=== PATIENT | female | born 1955 | race Caucasian/White ===

== ENCOUNTER → 2018-03-30 | Outpatient (CLI) | payer BC ==
[~2018-03-30] MED LIST: ACE325 PO; ASC500 PO; CALC-901 PO; ESCI5SOL2 PO; MOMR; MULT-1 PO; OMEG-11 PO; SIM10 PO; [UNRECOGNIZED DRUG - CODE] PO
--- NOTE | 2018-03-31 11:51 | RADIOLOGY IMAGING REPORT ---
FACILITY: [facility] [place] PATIENT NAME: MEGHAN SALDIVAR : [id number] MR: [id number] V: [id number] EXAM DATE: [id number] ORDERING PHYSICIAN: WAYLON CASTAÑEDA TECHNOLOGIST: Dinora Magana PROCEDURE:BILATERAL DIGITAL SCREENING MAMMOGRAM WITH CAD ASSISTED INTERPRETATION & 3D TOMOSYNTHESIS COMPARISON:Prior mammograms 03/15/17, 03/08/16. INDICATIONS:SCREENING FINDINGS: There is scattered fibroglandular tissue. Within the Left posterior breast at the nipple line on both views there is a 6mm vague focal asymmetry. This structure appears to represent a potential nodule based on the Tomographic images. This finding is likely unchanged compared to 2017 and 2016 exams comparing MLO views but is more visible on the CC view on current exam. This finding does appear new compared to 2015 comparisons. This finding is favored to represent a likely benign cyst or lymph node however is non-specific and further imaging is recommended for further characterization. Otherwise unremarkable breasts without additional change. No suspicious microcalcification. DIAGNOSTIC CATEGORY 0--INCOMPLETE: NEED ADDITIONAL IMAGING EVALUATION. RECOMMENDATIONS: ADDITIONAL MAMMOGRAPHIC VIEWS REQUIRED: LEFT BREAST. IMPRESSION: BIRADS 0: Incomplete. Needs additional imaging, Left breast Spot compression CC and MLO views and Left breast Ultrasound recommended for further evaluation of the focal asymmetry described above. Dictated by: Otoniel Garg on 03/31/2018 at 10:31 Transcribed by: FREYA on 03/31/2018 at 10:47 Approved by: Otoniel Garg on 03/31/2018 at 11:51 [facility]
== END ==
LOC: MAMO 01:49
PROVIDERS: ATTEND Nurse Practitioner Psychiatric/Mental Health
DX: Z12.31 Encounter for screening mammogram for malignant neoplasm of breast (principal); R92.8 Other abnormal and inconclusive findings on diagnostic imaging of breast
CPT/HCPCS: 77063; 77067

== ENCOUNTER → 2018-04-26 | Outpatient (CLI) | payer BC ==
--- NOTE | 2018-04-27 13:51 | RADIOLOGY IMAGING REPORT ---
FACILITY: [facility] PATIENT NAME: MEGHAN SALDIVAR : [id number] MR: [id number] V: [id number] EXAM DATE: [id number] ORDERING PHYSICIAN: WAYLON CASTAÑEDA TECHNOLOGIST: Dinora Magana PROCEDURE:LEFT DIGITAL DIAGNOSTIC MAMMOGRAM WITH CAD ASSISTED INTERPRETATION & 3D TOMOSYNTHESIS COMPARISON:Prior mammograms 03/30/18, 03/15/17, 03/08/16, 03/05/15, 02/18/14, 02/13/13, 02/10/12. INDICATIONS:further evaluation FINDINGS: The patient returns for Spot compression views in Left CC and MLO projections with 3D Tomosynthesis. A small amount of fibroglandular tissue is again seen throughout the breasts. Re-demonstrated is the ovoid nodular density in the deep central portion of the Left breast. Today's Left breast Ultrasound did not demonstrate and sonographic correlate therefore a 6 month follow-up Left mammogram is recommended to show stability unless clinical findings warrant more immediate attention. DIAGNOSTIC CATEGORY 3--PROBABLY BENIGN FINDING. RECOMMENDATIONS: SIX MONTH FOLLOW-UP DIAGNOSTIC MAMMOGRAM: LEFT BREAST. IMPRESSION: BIRADS 3: Probably benign finding. A 6 month follow-up Left mammogram is recommended as described. Dictated by: Erika Graves M.D. on 04/26/2018 at 15:46 Transcribed by: FREYA on 04/26/2018 at 16:06 Approved by: Erika Graves M.D. on 04/27/2018 at 13:50 [facility]
--- NOTE | 2018-04-27 13:51 | RADIOLOGY IMAGING REPORT ---
FACILITY: [facility] PATIENT NAME: MEGHAN SALDIVAR : [id number] MR: [id number] V: [id number] EXAM DATE: [id number] ORDERING PHYSICIAN: WAYLON CASTAÑEDA TECHNOLOGIST: dR Strong RDMS, KIANNA PROCEDURE:US LEFT BREAST COMPARISON:None. INDICATIONS:further evaluation FINDINGS: The entire Left breast was imaged revealing no sonographic abnormality to account for the ovoid nodular density in the deep central Left breast therefore a 6 month follow-up Left mammogram is recommended to document stability. DIAGNOSTIC CATEGORY 3--PROBABLY BENIGN FINDING. RECOMMENDATIONS: SIX MONTH FOLLOW-UP DIAGNOSTIC MAMMOGRAM: LEFT BREAST. IMPRESSION: BIRADS 3: Probably benign finding. A 6 month Left mammogram is recommended as described above. Dictated by: Erika Graves M.D. on 04/26/2018 at 15:33 Transcribed by: FREYA on 04/26/2018 at 16:09 Approved by: Erika Graves M.D. on 04/27/2018 at 13:50 [facility]
== END ==
LOC: MAMO 02:04
PROVIDERS: ATTEND Nurse Practitioner Psychiatric/Mental Health
DX: R92.2 Inconclusive mammogram (principal)
CPT/HCPCS: 77061; 77065

== ENCOUNTER → 2018-10-25 | Outpatient (CLI) | payer BC ==
[~2018-10-25] MED LIST changes: +DIME240C2 PO; +ESCI5TAB3 PO; +ESTR42.5 PV; +FLUT16SP19 NS; +GABA-549 PO; +LIFI1DRO OP
--- NOTE | 2018-10-25 17:23 | RADIOLOGY IMAGING REPORT ---
FACILITY: [facility] PATIENT NAME: MEGHAN SALDIVAR : [id number] MR: [id number] V: [id number] EXAM DATE: [id number] ORDERING PHYSICIAN: WAYLON CASTAÑEDA TECHNOLOGIST: Kathy Morales PROCEDURE:LEFT DIGITAL DIAGNOSTIC MAMMOGRAM COMPARISON:Prior mammogram 04/26/2018. INDICATIONS:Six month follow up FINDINGS: Views obtained Left CC & MLO view with Spot compression views in Left CC & MLO views. The previously seen ovoid density measuring approximately 7 x 4mm is re-identified on the Spot compression views and is unchanged in size or appearance. This ovoid mass is approximately 7cm deep to the nipple centrally in the posterior 1/3 aspect of the breast. DIAGNOSTIC CATEGORY 3--PROBABLY BENIGN FINDING. RECOMMENDATIONS: SIX MONTH FOLLOW-UP DIAGNOSTIC MAMMOGRAM: BILATERAL BREASTS. IMPRESSION: BIRADS 3: Probably benign finding. Dictated by: Ace Heath M.D. on 10/25/2018 at 15:16 Transcribed by: FREYA on 10/25/2018 at 15:34 Approved by: Ace Heath M.D. on 10/25/2018 at 17:22 [facility]
== END ==
LOC: MAMO 00:44
PROVIDERS: ATTEND Nurse Practitioner Psychiatric/Mental Health
DX: N63.20 Unspecified lump in the left breast, unspecified quadrant (principal)
CPT/HCPCS: 77061; 77065